=== PATIENT | male | born 1945 | race Caucasian/White ===

== ENCOUNTER → 2016-09-23 | Day surgery (SDC) | payer OTHER, MEDICARE ==
[~2016-09-23] VITALS: Ht 177.8 cm; Wt 102.1 kg
[~2016-09-23] MED LIST: BENICAR HCT 201 EACH PO; CRESTOR10 M1 PO; CRESTOR20 M2 PO; MIRALAX17 G1 PO; MULTI-DAY VITA1 EACH PO; RAPAFLO8 M1 PO; VENLAFAXINE HC225 MG PO; VICODIN ES 7.51 EACH PO
--- NOTE | 2016-09-23 09:14 | Operative Report ---
Operative/Inv Procedure Report Surgery Date: 09/23/16 Name of Procedure: L3 4, L45, L5 S1 laminectomy, bilateral osteotomies. L34, L45, L5S1 TLIF. Insertion of interbody cages at L34, L45 and L5S1. Posterior L3-4-5S1 segmental instrumentation , arthrosdesis with autologous bone graft. Streotactic. Pre-Operative Diagnosis: Lumbar spondylosis lumbar spondylolisthesis lumbar stenosis. Post-Operative Diagnosis: Same Estimated Blood Loss: none Surgeon/Business Operations Analyst: ARGELIA ARROYO MD and MARY CARBALLO MD Anesthesia: general endotracheal tube Operative/Procedure Note Note: Patient was brought to the operating room and after going endotracheal intubation for catheterizations patient underwent a line placement. It became apparent very quickly that that the patient's blood pressure became hypotensive as soon as the A line was able to confirm the cuff pressure. Interrupted the blood pressure of fracture between 50 and 60 systolic over 30 diastolic. Patient patient received a Kiran-Synephrine drip, plus boluses and the blood pressure was stabilized to approximately 100 systolic. However quickly drifted back down again to systolic of 50-60. The patient was positioned and his back was prepped during the period that his blood pressure melissa and was stable. At this point after consultation with the anesthesiologists it was felt that his medication for his hypertension, Benicar, mildly interfering with the anesthesia and indeed causing the paradoxical hypotension. It was decided at this point through a posterior procedure and performed further cardiac workup prior to proceeding. The patient remained stable throughout, saturating at 100%. Patient was extubated and taken to the recovery room.
--- NOTE | 2016-09-23 09:20 | Operative Report ---
Operative/Inv Procedure Report Surgery Date: 09/23/16 Name of Procedure: 1. Bilat L3, L4, L5 pars osteotomies 2. L3/4, L4/5, L5/S1 total facetectomies, laminectomies 3. L3/4, L4/5, L5/S1 TLIF with interbody cages, autograft 4. L3-S1 segmental posterolateral arthrodesis with pedicle screws/rods, autograft, allograft 5. ICBM aspirate 6. O-arm navigation Pre-Operative Diagnosis: L3/4, L4/5, L5/S1 spondylolisthesis, stenosis, intractable claudication Post-Operative Diagnosis: same Estimated Blood Loss: n/a Surgeon/Comb Capper: KAIT HORNE,Trell Blackburn MD Anesthesia: general endotracheal tube Monitors: neurophysiologic monitoring IV Fluids: crystalloid Urine Output: via caruso Complications: case aborted secondary to hypotension Condition: stable to PACU Operative Indication: Pt 71yo with intractable lower extremity claudication despite prolonged conservative care and with MRI/CT findings of severe multilevel stenosis and spondylolisthesis, he now presents for surgical decompression and fusion. Operative/Procedure Note Note: Pt was taken to operating room. After appropriate pt identificaiton and surgical time out, the pt underwent smooth induction of general endotracheal anesthesia without incident. Neurophysiologic leads were placed and baseline recordings obtained. A caruso catheter was placed. Pt then became hypotensive to systolic of 60-70 and was bolused with one liter of IV fluid with improvement. He was monitored for several minutes and then carefully turned into the prone position with all pressure points well padded. The lumbar region was widely prepped and draped and a midline incision marked. Once prone, the BP dropped and he was started on a neosynephrine drip by anesthesia with only propofol running. His oxygenation was excellent and his EKG strip remained normal. His BP improved transiently with the drip, but he continued to require intermittent bolus doses of leroy to maintain the systolic pressure at or above 100. After consulting with anesthesia staff, it was felt that the patient would not tolerate prolonged surgery and would require further cardiac workup before proceeding saftely. The case was therefore aborted out of safety concerns for the patient. The pt was returned to the supine position, extubated and taken to PACU where he was monitored by anesthesia staff. He was neurologically stable and informed of the events.
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
== END ==
LOC: SDA 01:23 → UNDOADMIN 01:23 → EDSTATUS 07:00 → STS 12:44
DX: M43.06 Spondylolysis, lumbar region (principal); Z53.8 Procedure and treatment not carried out for other reasons; I95.9 Hypotension, unspecified; I99.8 Other disorder of circulatory system; M48.06 Spinal stenosis, lumbar region; I73.9 Peripheral vascular disease, unspecified; G95.19 Other vascular myelopathies; I10 Essential (primary) hypertension; E78.5 Hyperlipidemia, unspecified
CPT/HCPCS: SDA; 36415; J0131; J0690